=== PATIENT | male | born 1970 | race African-American/Black ===

== ENCOUNTER 2018-05-16 14:38 | Observation (INO) | payer OTHER, SELFPAY ==
[2018-05-16 15:38] LABS: CKMB 1.1 ng/mL (0-6.6); Troponin I Less than 0.010 ng/mL (< 0.028)
[2018-05-16] MEDS ORDERED: Guaifenesin DM 100-10/5 ML UDCUP PO PRN (16:06)
[2018-05-16] MEDS ORDERED: Acetaminophen 325 MG TAB PO PRN (16:06)
[2018-05-16] MEDS ORDERED: Ondansetron HCl/PF 4 MG/2 ML Vial IVP PRN (16:06)
[2018-05-16] MEDS ORDERED: Lisinopril 10 MG TAB ONE (16:50)
[2018-05-16] MEDS ORDERED: Amlodipine 5 MG TAB ONE ×2 (16:55→16:57)
[2018-05-16 17:30] VITALS: BMI 28.3
[2018-05-16] MEDS: Carvedilol 6.25 MG TAB PO SCH (18:32)
[2018-05-16] MEDS: Famotidine 20 MG TAB PO SCH (18:33)
[2018-05-16] MEDS: Nitroglycerin 2% Ointment 1 INCH/1 GM Packet TOP SCH (18:33)
[2018-05-16 18:34] LABS: Troponin I Less than 0.010 ng/mL (< 0.028)
--- NOTE | 2018-05-16 20:34 | HP ---
DATE OF ADMISSION: 05/16/2018 REASON FOR ADMISSION: Uncontrolled hypertension, chest pain. HISTORY OF PRESENT ILLNESS: The patient gives history of retrosternal chest pain radiating to the back and both shoulders, which started around yesterday evening. He is currently in intermediate in [facility] and is getting released today. Chest pain has been off and on for the last 2 weeks. Most of the time, they come on when he is just quiet. Also, his blood pressure has been trending high. Yesterday, it was 182/124. Today, the systolics went up to 200. He has had some chest pains when the blood pressure goes up as well. The patient states that he has had a stress test done in 2007, a nuclear stress test, which he says was negative as far as he knows. PAST MEDICAL AND SURGICAL HISTORY: History of hypertension, left wrist surgery , GERD, benign prostatic hypertrophy. CURRENT MEDICATIONS: Clonidine 0.2 mg p.o. twice daily, Protonix 40 mg p.o. daily, doxazosin 8 mg p.o. daily, Norvasc 10 mg daily. ALLERGIES: Allergic to SULFA. PERSONAL HISTORY: Occasional smoking. Drinks beer on the weekends. Drinks around 6-7 beers on the weekend. Denies substance abuse. He is currently in intermediate and will be released today or tomorrow. FAMILY HISTORY: Mother has had left shoulder arthritis. Father has a history of hypertension. CODE STATUS: Full. Power of commercial real estate attorney is his mom, Ms. Tia Hess. Number to reach her is [phone]. REVIEW OF SYSTEMS: The following complete review of systems was negative, unless otherwise mentioned in the HPI or below: Constitutional: Weight loss or gain, ability to conduct usual activities. Skin: Rash, itching. Eyes: Double vision, pain. ENT/Mouth: Nose bleeding, neck stiffness, pain, tenderness. Cardiovascular: Palpitations, dyspnea on exertion, orthopnea. Respiratory: Shortness of breath, wheezing, cough, hemoptysis, fever or night sweats. Gastrointestinal: Poor appetite, abdominal pain, heartburn, nausea, vomiting, constipation, or diarrhea. Genitourinary: Urgency, frequency, dysuria, nocturia. Musculoskeletal: Pain, swelling. Neurologic/Psychiatric: Anxiety, depression. Allergy/Immunologic: Skin rash, bleeding tendency. PHYSICAL EXAMINATION: GENERAL: The patient is a 47-year-old male who is currently not in any acute distress. VITAL SIGNS: Blood pressure 166/110, pulse 66 per minute, respiratory rate is 18 per minute, temperature 98 degrees Fahrenheit, saturating 95% on room air. NECK: Supple. No elevated JVD. HEENT: Extraocular muscles intact. Pupils reacting to light. Oral cavity, mucous membranes are moist. No exudates or congestion. CARDIOVASCULAR: S1, S2 heard. Regular rhythm. RESPIRATORY: Air entry 1+ bilateral. Scattered rhonchi plus bilateral. No wheezes. ABDOMEN: Soft. Bowel sounds heard. No tenderness, rigidity or guarding. EXTREMITIES: No peripheral edema or calf tenderness. VASCULAR SYSTEM: Peripheral pulses 1+ bilateral. No ischemic ulcerations or gangrene. CENTRAL NERVOUS SYSTEM: No gross focal deficits noted. The patient is alert, awake, oriented well. PSYCHIATRIC: The patient's mood is euthymic. No hallucinations or delusions. LABORATORY AND X-RAY FINDINGS: EKG done shows normal sinus rhythm at 67 beats per minute. There are signs of LVH seen. There are T inversions seen in V3- V6. White count of 4, H and H of 13 and 41, platelet count 284,000 with 57% neutrophils, MCV is 86. Potassium is 3.2, BUN 17, creatinine 1.4, serum bicarbonate is 30. Troponin x2 is negative. CK-MB 1.1. Liver enzymes within normal limits. Chest x-ray done shows no acute cardiopulmonary abnormalities. CLINICAL IMPRESSION AND PLAN: The patient will be under observation on telemetry for uncontrolled hypertension with chest pain, likely hypertensive urgency. His two sets of troponin are negative. We will schedule the patient for a nuclear stress test. The patient has signs of LVH strain pattern on the EKG with anterolateral T inversions as well. In view of this, we will obtain echo with 2D Doppler for LV function. We will place him on a full dose of aspirin, Coreg, hydrochlorothiazide and lisinopril. He will also be on nitro paste half inch q.8 hourly. We will keep him n.p.o. after midnight for stress test in the morning. [facility]
[2018-05-16] MEDS ORDERED: cloNIDine 0.1 MG TAB PO SCH (21:00)
[2018-05-16] MEDS ORDERED: Lisinopril 10 MG TAB PO SCH (21:00)
[2018-05-16 21:38] LABS: Troponin I 0.016 ng/mL (< 0.028)
[2018-05-17 04:36] LABS: #Eosinphils 0.2 thou/uL (0.0-0.7); #Lymphocytes 1.1 thou/uL (1.20-3.40); #Monocytes 0.5 thou/uL (0.11-0.59); #Neutrophils 2.2 thou/uL (1.40-6.50); %Eosinophils 5.4 % (0.0-10.0); %Lymphocytes 26.6 % (21.0-51.0); %Monocytes 13.1 % (0.0-10.0); Hemoglobin 12.4 g/dL (14.0-18.0); Mean Corpuscular HGB CONC 33.5 g/dL (32.0-36.0); Mean Corpuscular Hemoglobin 29.4 pg (27.0-31.0); Mean Platelet Volume 8.4 fL (7.4-10.4); Platelet Count 264 thou/uL (130-400); RBC Distribution Width 12.7 % (11.5-14.5); White Blood Cell (WBC) Count 4.1 thou/uL (4.8-10.8)
[2018-05-17 04:58] LABS: Anion Gap 13 mmol/L (10-20); BUN (Urea Nitrogen) 17 mg/dL (8.9-20.6); Calc. Creatinine Clearance 105 mL/min (70-130); Carbon Dioxide 27 mmol/L (22-29); Chloride 102 mmol/L (98-107); Cholesterol 151 mg/dl (< 200 Desired); Estimated GFR-MDRD 75; Glucose 107 mg/dL (70-105); HDL Cholesterol 30 mg/dL (>60 Neg Risk); LDL Cholesterol, Calculated 99 mg/dL; Potassium 3.2 mmol/L (3.5-5.1); Sodium 139 mmol/L (136-145); Triglycerides 109 mg/dL (Less than 150)
[2018-05-17] MEDS: Nitroglycerin 2% Ointment 1 INCH/1 GM Packet TOP SCH (08:23)
[2018-05-17] MEDS: Carvedilol 6.25 MG TAB PO SCH ×2 (08:23→14:02)
[2018-05-17] MEDS: Famotidine 20 MG TAB PO SCH (08:27)
[2018-05-17] MEDS: hydrALAZINE 25 MG TAB PO SCH ×2 (08:31→15:36)
[2018-05-17] MEDS ORDERED: Iopamidol 370 76% 100 ML VIAL ONE (08:35)
[2018-05-17] MEDS ORDERED: Regadenoson 0.4 MG/5 ML SYRINGE ONE (08:37)
[2018-05-17] MEDS ORDERED: Aspirin 325 MG TAB PO SCH (09:00)
[2018-05-17] MEDS ORDERED: NIFEdipine XL 60 MG TAB PO SCH (09:00)
[2018-05-17] MEDS ORDERED: Enoxaparin Sodium 40 MG/0.4 ML SYRINGE SC SCH (09:00)
[2018-05-17] MEDS ORDERED: Hydrochlorothiazide 25 MG TAB PO SCH (09:00)
--- NOTE | 2018-05-17 10:06 | PDOC.PN ---
- Subjective Encounter Start Date: 05/17/18 Encounter Start Time: 08:55 Subjective: no chest pain or sob -: is getting stress test - Objective Resuscitation Status: Resuscitation Status FULL:Full Resuscitation MAR Reviewed: Yes Vital Signs & Weight: Vital Signs (12 hours) Temp Pulse Resp BP Pulse Ox 05/17/18 08:31 59 L 05/17/18 08:27 59 L 05/17/18 07:32 97.7 F 59 L 20 177/109 H 94 L 05/17/18 04:19 98.4 F 51 L 18 158/97 H 94 L 05/16/18 22:54 97.8 F 49 L 14 158/100 H 95 Weight Weight 217 lb 6.4 oz I&O: 05/16/18 05/17/18 05/18/18 06:59 06:59 06:59 Intake Total 480 Output Total 200 Balance 280 Result Diagrams: 05/17/18 03:31 05/17/18 03:31 Phys Exam - Physical Examination HEENT: PERRLA, moist MMs Neck: no JVD, supple Respiratory: no wheezing, no rales Cardiovascular: RRR, no significant murmur Gastrointestinal: soft, non-tender, positive bowel sounds Musculoskeletal: no edema, pulses present Neurological: non-focal, moves all 4 limbs Psychiatric: normal affect, A&O x 3 Dx/Plan (1) Chest pain Code(s): R07.9 - CHEST PAIN, UNSPECIFIED Status: Acute Qualifiers: Chest pain type: unspecified Qualified Code(s): R07.9 - Chest pain, unspecified (2) Hypertensive urgency Code(s): I16.0 - HYPERTENSIVE URGENCY Status: Resolved (3) Bradycardia Code(s): R00.1 - BRADYCARDIA, UNSPECIFIED Status: Acute Comment: sec to medications (4) COPD (chronic obstructive pulmonary disease) Status: Chronic Qualifiers: COPD type: chronic bronchitis - Plan await stress test results -: had bradycardia likely due to meds -: is off clonidine and lisinopril (allergy) -: add procardia and hydralazine to hctz and coreg -: echo for lvh strain pattern * . Review of Systems - Medications/Allergies Allergies/Adverse Reactions: Allergies Allergy/AdvReac Type Severity Reaction Status Date / Time KAIT Inhibitors Allergy Verified 05/16/18 21:05 Sulfa (Sulfonamide Allergy Verified 05/16/18 18:10 Antibiotics) Medications: Current Medications Acetaminophen (Tylenol) 650 mg PO Q4H PRN PRN Reason: Headache/Fever or Pain Aspirin (Aspirin) 325 mg PO DAILY [facility] Last Admin: 05/17/18 08:26 Dose: 325 mg Carvedilol (Coreg) 6.25 mg PO BID [facility] Last Admin: 05/16/18 18:32 Dose: 6.25 mg Enoxaparin Sodium (Lovenox) 40 mg SC 0900 [facility] Last Admin: 05/17/18 08:31 Dose: 40 mg Famotidine (Pepcid) 20 mg PO BID [facility] Last Admin: 05/17/18 08:27 Dose: 20 mg Guaifenesin/Dextromethorphan (Robitussin Dm) 15 ml PO Q4H PRN PRN Reason: Cough Hydralazine HCl (Apresoline) 25 mg PO TID [facility] Last Admin: 05/17/18 08:31 Dose: 25 mg Hydrochlorothiazide (Hydrochlorothiazide) 25 mg PO DAILY [facility] Last Admin: 05/17/18 08:31 Dose: 25 mg Nifedipine (Procardia Xl) 60 mg PO DAILY [facility] Last Admin: 05/17/18 08:27 Dose: 60 mg Ondansetron HCl (Zofran) 4 mg IVP Q6H PRN PRN Reason: Nausea/Vomiting Sodium Chloride (Flush - Normal Saline) 10 ml IVF Q12HR [facility] Last Admin: 05/17/18 08:32 Dose: 10 ml Sodium Chloride (Flush - Normal Saline) 10 ml IVF PRN PRN PRN Reason: Saline Flush
--- NOTE | 2018-05-17 12:49 | NM ---
NUCLEAR MEDICINE CARDIAC STRESS TEST WITH EJECTION FRACTION: HISTORY: Chest pain. Hypertension. Smoker. COMPARISON: Exam from 2007. TECHNIQUE: Stress and rest were performed after the intravenous administration of 27 and 9 millicuries of techne tium 99m sestamibi. FINDINGS: No evidence of scar or ischemia. Severe global hypokinesia. Ejection fraction calculated at 40%. IMPRESSION: 1. No evidence of scar or ischemia. 2. Severe hypokinesia with a low ejection fraction of 40%. POS: DULCE
[2018-05-17] MEDS ORDERED: Furosemide 40 MG/4 ML VIAL SLOW IVP SCH (13:00)
[2018-05-17] MEDS ORDERED: Communication Order-Pharmacy FS SCH (13:30)
[2018-05-17] MEDS ORDERED: Sodium Chloride 0.9% 1,000 ML IV SCH ×2 (13:30→14:45)
[2018-05-17] MEDS ORDERED: Midazolam HCl 2 mg/2 ml Vial ONE (13:32)
[2018-05-17] MEDS ORDERED: Fentanyl 100 MCG/2 ML VIAL ONE (13:32)
[2018-05-17] MEDS ORDERED: Heparin 10,000 UNITS/1 ML VIAL ONE (13:33)
[2018-05-17] MEDS ORDERED: Verapamil 5 MG/2 ML VIAL ONE (13:33)
[2018-05-17] MEDS ORDERED: Nitroglycerin 100MG/250ML BOT 0 ML ONE (13:33)
[2018-05-17] MEDS ORDERED: Lidocaine 1% (PF) 30 ML VIAL ONE (13:33)
[2018-05-17] MEDS ORDERED: Nitroglycerin 100MG/250ML BOT 250 ML ONE (13:37)
[2018-05-17] MEDS ORDERED: Acetaminophen/Codeine 30-300mg Tablet PO PRN (14:35)
[2018-05-17] MEDS ORDERED: Nitroglycerin 0.4 MG TAB (25 Tab Bottle) SL PRN (14:35)
[2018-05-17] MEDS ORDERED: traMADol HCl 50 MG TAB PO PRN (14:35)
[2018-05-17] MEDS ORDERED: hydrALAZINE 20 MG/ML VIAL ONE (14:43)
[2018-05-17] MEDS ORDERED: Sodium Chloride 0.9% 200 ML IV SCH (14:45)
[2018-05-17 16:02] VITALS: TEMP 98.4
--- NOTE | 2018-05-17 16:55 | CON ---
DATE OF CONSULTATION: 05/17/2018 REASON FOR CONSULTATION: Abnormal stress test. HISTORY OF PRESENT ILLNESS: Mr. Reid is a pleasant 47-year-old -[place] gentleman, who com es to the hospital for high blood pressure and chest discomfort. He has been noticing episodes of ch est tightness in the mid sternal area to both shoulders started, but yesterday he noted that his bloo d pressure was extremely high, decided to come in for evaluation. He was admitted for treatment of h ypertensive emergency. He had a stress test earlier today that showed no evidence of reversible isch emia; however, he had a reduced EF at 40% with septal hypokinesis suggestive of either nonischemic ca rdiomyopathy versus multivessel disease. Cardiology consulted for further evaluation of this. PAST MEDICAL HISTORY: 1. Poorly controlled hypertension. 2. Benign prostatic hypertrophy. 3. Gastroesophageal reflux disease. PAST SURGICAL HISTORY: Left wrist surgery. OUTPATIENT MEDICATIONS: 1. Clonidine 0.2 mg twice a day. 2. Protonix 40 mg a day. 3. Doxazosin. 4. Norvasc 10 mg a day. ALLERGIES: SULFA DRUGS. SOCIAL HISTORY: Occasional smoking, alcohol use in the weekends. No drug use. He was just released from residential. FAMILY HISTORY: Noncontributory. REVIEW OF SYSTEMS: A 12-point review of systems was done, it is all negative unless stated in the his tory of present illness. PHYSICAL EXAMINATION: VITAL SIGNS: Temperature 98.4, pulse 59, respiration rate 18, satting 97% on room air, and blood pre ssure 167/110. GENERAL: Awake, alert, oriented x3, in no distress. HEENT: Normocephalic. NECK: Supple. LUNGS: Clear. CARDIOVASCULAR: S1 and S2. No S3 or S4, no murmurs or rubs. ABDOMEN: Soft, positive bowel sounds. EXTREMITIES: No edema. SKIN: Warm and dry. LABORATORY WORK: Reviewed. White count of 4.1, hemoglobin 12, hematocrit 36, platelet count 264. C hemistry is unremarkable except for potassium 3.2. Troponin was negative x3. Triglycerides of 109, cholesterol of 151, LDL of 99, HDL of 30. EKG was reviewed. Nuclear stress was reviewed. ASSESSMENT AND PLAN: 1. New onset cardiomyopathy: We will correlate with echocardiogram to make sure that in fact his LV was reduced; however, because of the possibility of him having multivessel disease. We will go ahea d and rule this out with a left heart catheterization, was spoke at length about the risks and benefi ts of the procedure, risks including, but not limited to stroke, VT, , bleeding and need for blo od transfusion, limb loss, organ loss, need for emergency bypass surgery, need for emergency vascular surgery. Patient verbalized understanding of this and agrees to proceed. We will plan on doing thi s later today. 2. Further recommendation per results of coronary angiogram, most likely this is nonischemic cardiom yopathy from hypertension, so he will need very strict blood pressure control. 3. We will follow.
[2018-05-17 17:11] VITALS: BP 184/111
--- NOTE | 2018-05-18 02:21 | DIS ---
DATE OF ADMISSION: 05/16/2018 DATE OF DISCHARGE: 05/17/2018 DISCHARGE DISPOSITION: To home. PRIMARY DISCHARGE DIAGNOSES: Chest pain which is noncardiac, hypertensive urgency with mild systolic dysfunction and ejection fraction of around 45%. There is no sign of congestive heart failure exacerbation at present. Chronic obstructive pulmonary disease. PROCEDURES DONE DURING HOSPITALIZATION: Cardiac catheterization done showed no significant coronary artery disease, LV ejection fraction was 50% on the coronary angiogram. Nuclear stress test done showed no evidence of scar or ischemia. There was severe hypokinesia with low ejection fraction of 40%. Transthoracic echo with 2D Doppler done showed an EF of 45% to 50%. There was grade I/III diastolic dysfunction, mild concentric LVH, dilated aortic root at 4.1 cm, aortic valve sclerosis but was opening well, there was mild aortic regurgitation noted. LABORATORY DATA: H and H 12 and 36, platelet count 264. Troponin x3 negative. Total cholesterol 151, triglycerides 109, LDL 99, HDL 30, BUN is 17, creatinine 1.25. DISCHARGE MEDICATIONS: Aspirin 81 mg p.o. daily, hydrochlorothiazide 25 mg p.o. daily, Coreg 6.25 mg p.o. twice daily, doxazosin 8 mg p.o. daily, Imdur extended release 30 mg p.o. daily, Procardia-XL 60 mg p.o. daily. ALLERGIES: KAIT INHIBITORS AND SULFA. DISCHARGE PLAN: The patient to follow up with primary care physician in 1 week. He also needs to check his blood pressure and pulse twice daily and record to follow up with primary care physician in 1 week. BRIEF COURSE DURING HOSPITALIZATION: The patient initially was brought from [facility] for uncontrolled hypertension. His initial systolic blood pressures were more than 200 here. The patient was essentially admitted for hypertensive urgency and chest pain. He has had a nuclear stress test done which showed no scar or ischemia but had global hypokinesis. In view of this, cardiology consultation with Dr. Tan was requested. The patient has had coronary angiogram done, which shows no significant coronary artery disease. His medications were optimized. The patient will be shortly discharged home after cardiac catheterization protocol is completed. He was counseled with regards to medication compliance. Please see [id number]. [facility]
--- NOTE | 2018-05-26 18:20 | EKG ---
Test Reason : Blood Pressure : / mmHG Vent. Rate : 067 BPM Atrial Rate : 067 BPM P-R Int : 172 ms QRS Dur : 094 ms QT Int : 426 ms P-R-T Axes : 023 -08 123 degrees QTc Int : 450 ms Normal sinus rhythm Voltage criteria for left ventricular hypertrophy Abnormal ECG Confirmed by SHAHNAZ OROZCO, KADY Melendez ([id number]), staff editor BAN BATES ([id number]) on 05/26/2018 6:20:17 PM Referred By: Confirmed By:KADY CHRISTIE MD
== END 2018-05-17 19:28 | disposition home or self-care (01) ==
LOC: ERS 14:38 → 2SW 16:13
PROVIDERS: ADMIT Internal Medicine; ATTEND Internal Medicine
PROC: 4A023N7 Measurement of Cardiac Sampling and Pressure, Left Heart, Percutaneous Approach (ICD-10-PCS; principal; 2018-05-17)
PROC: B2111ZZ Fluoroscopy of Multiple Coronary Arteries using Low Osmolar Contrast (ICD-10-PCS; 2018-05-17)
DX: I16.0 Hypertensive urgency (principal); I16.1 Hypertensive emergency; R07.89 Other chest pain; I10 Essential (primary) hypertension; I42.9 Cardiomyopathy, unspecified; K21.9 Gastro-esophageal reflux disease without esophagitis; N40.0 Benign prostatic hyperplasia without lower urinary tract symptoms; F17.210 Nicotine dependence, cigarettes, uncomplicated; J44.9 Chronic obstructive pulmonary disease, unspecified; Z79.899 Other long term (current) drug therapy; Z88.2 Allergy status to sulfonamides; Z88.8 Allergy status to other drugs, medicaments and biological substances
CPT/HCPCS: 36415; 78452; 80048; 80061; 85025; 90471; 90732; 93005; 93017; 93306; 93458; 94760; 96361; 96372; 96374; 99152; A4216; A9500; C1769; G0009; G0378; J0360; J1644; J1650; J1940; J2001; J2250; J2785; J3010